=== PATIENT | female | born 1970 | race Caucasian/White ===

== ENCOUNTER 2016-10-24 14:48 | Emergency (ER) | payer MEDICAID, OTHER ==
[~2016-10-24] VITALS: Ht 154.9 cm; Wt 112.0 kg
[2016-10-24 14:49] VITALS: Ht 154.9 cm; Wt 112.0 kg
[2016-10-24] MEDS ORDERED: HYDROCODONE/APAP (5/325) TAB PO ONE (16:00)
[2016-10-24] MEDS ORDERED: IBUPROFEN 600 MG TAB PO ONE (16:00)
[2016-10-24] MEDS ORDERED: AZIT250T94 PO (16:02)
[2016-10-24] MEDS ORDERED: OFLO5DRO7 RIGHT EAR (16:02)
[2016-10-24] MEDS ORDERED: IBUP-1542 PO (16:18)
--- NOTE | 2016-10-24 16:18 | ERD ---
ER Documentation Chief Complaint Date/Time DATE: 10/24/16 TIME: 16:15 Chief Complaint RT EAR PAIN X 2 DAYS HPI 46-year-old female presents emergency department for inner ear pain for the past 2 days. She describes as moderate to severe, slightly draining, difficult to hear. Pain is localized to the ear, she does not have any headache skull pain associated. Denies fevers or chills. ROS All systems reviewed and are negative except as per history of present illness. Medications Home Meds Active Scripts Ofloxacin Otic (Ofloxacin Otic) 5 Ml Drops, 5 DROP RIGHT EAR BID for 10 Days, # 1 BOTTLE Prov:SARANYA CLIFTON PA-C 10/24/16 Azithromycin* (Zithromax*) 250 Mg Tablet, 250 MG PO .ZPACK DIRECTED, #6 TAB TAKE 500 MG (2 TABS) THE FIRST DAY THEN 250 MG (1 TAB) DAYS 2-5 Prov:SARANYA CLIFTON PA-C 10/24/16 Physical Exam Vitals Vital Signs Date Time Temp Pulse Resp B/P Pulse Ox O2 Delivery O2 Flow Rate FiO2 10/24/16 14:49 99.0 84 18 138/75 97 Physical Exam General: Well-developed, well-nourished. The patient appears in no acute distress. HEENT: Head is normocephalic, atraumatic. No scleral icterus. There is edema, with otorrhea to the right ear, TM is bulging, there is no perforation, mastoids nontender. Left ear is unremarkable. Neck: Supple. Nontender. Lungs: Clear to auscultation. Normal air movement. Heart: Regular rate and rhythm. S1 and S2 are normal. No murmurs, gallops, or rubs. Abdomen: Nondistended. Extremities: No clubbing or cyanosis. Moving extremities x 4. No weakness. Neurologic: Alert and oriented 3. No focal deficits. Normal speech and gait. Skin: Normal turgor. No rash or lesions. Results 24 hrs Current Medications Medications (Trade) Dose Ordered Sig/Sabas Route PRN Reason Start Time Stop Time Status Last Admin Dose Admin Acetaminophen/ Hydrocodone Bitart ([place] (5/325)) 1 tab ONCE ONCE PO 10/24/16 16:00 10/24/16 16:01 DC Ibuprofen (Motrin) 600 mg ONCE ONCE PO 10/24/16 16:00 10/24/16 16:01 DC Procedures/MDM ED course: She was given ibuprofen and [place] for pain. Medical decision making: This 46-year-old female presents with otitis media or otitis externa of the right ear. There are no signs of mastoiditis, deep space infection, tympanic membrane perforation, additionally, there is no rash associated with signs of shingles or [place]. Patient will be discharged with ofloxacin otic drops and Zithromax, and was advised to take ibuprofen for pain. Departure Diagnosis: Primary Impression: Otitis externa Additional Impression: Otitis media Condition: Good Patient Instructions: Otitis Media, Abx Tx (Adult), External Ear Infection ( Adult) Additional Instructions: Llame al doctor MAANA y quoc efrain JUAN DAVID PARA DENTRO DE 1-2 MANNING.Dgale a la secretaria que nosotros le instruimos hacer esta juan david.Avise o llame si ch condicin se empeora antes de la juan david. Regresa aqui si peor o no mejor. SARANYA CLIFTON PA-C Oct 24, 2016 16:18
== END 2016-10-24 16:57 | disposition home or self-care (01) ==
LOC: FTE 14:48
DX: H60.91 Unspecified otitis externa, right ear (principal); H66.91 Otitis media, unspecified, right ear
CPT/HCPCS: Z7502; Z7610; 99283